=== PATIENT | female | born 1975 | race Caucasian/White ===

== ENCOUNTER 2025-03-02 23:19 | Emergency (ER) | payer OTHER, BC ==
[2025-03-02] MEDS ORDERED: KETOROLAC 30 MG/ML INJ ONE (23:31)
[2025-03-02] MEDS ORDERED: MORPHINE 4 MG/ML SYR ONE (23:31)
[2025-03-02] MEDS ORDERED: ONDANSETRON 4 MG/2 ML VIAL ONE (23:35)
--- NOTE | 2025-03-03 02:46 | RAD REPORT ---
EXAM: CT Lumbar Spine Without Intravenous Contrast CLINICAL HISTORY: Pain; Smash injury TECHNIQUE: Axial computed tomography images of the lumbar spine without intravenous contrast. Sagittal and cor onal reformatted images were created and reviewed. This CT exam was performed using one or more of the following dose reduction techniques: automated exposure control, adjustment of the mA and/or kV according to patient size, and/or use of iterative reconstruction technique. COMPARISON: No relevant prior studies available. FINDINGS: Vertebrae: There are 5 nonrib-bearing lumbar-type vertebral bodies. No acute fracture or subluxatio n. Discs/spinal canal/neural foramina: Mild multilevel degenerative changes. No canal stenosis. Soft tissues: Unremarkable. IMPRESSION: No acute injury. Electronically signed by: Denilson Vazquez MD 03/03/2025 02:22 AM CDT Due to temporary technical issues with the PACS/[employer] reporting system, reports are being heather d by the in-house radiologist without review as a courtesy to ensure prompt reporting the interpreting radiologist is fully responsible for the content of the report. Transcribed Date/Time: 03/03/2025 2:45 AM
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
[2025-03-03] MEDS ORDERED: MORPHINE 4 MG/ML SYR ONE (03:02)
[2025-03-03 04:09] VITALS: TEMP 98.8
[2025-03-03 04:12] VITALS: BP 115/73; O2SAT 96
== END 2025-03-03 03:32 | disposition home or self-care (01) ==
LOC: ER 23:19
DX: S33.5XXA Sprain of ligaments of lumbar spine, initial encounter (principal); V49.40XA Driver injured in collision with unspecified motor vehicles in traffic accident, initial encounter
CPT/HCPCS: 72131; 96375; 96374; 99284; J2405